=== PATIENT | male | born 1985 | race African-American/Black ===

== ENCOUNTER 2023-02-28 07:08 | Emergency (ER) | payer OTHER ==
[~2023-02-28] VITALS: Ht 180.3 cm; Wt 63.6 kg
[2023-02-28 07:17] VITALS: TEMP 97.7
[2023-02-28 07:59] LABS: BASOPHILS % (AUTO) 0.3 % (0.0-2.0); EOSINOPHILS % (AUTO) 2.2 % (1.0-6.0); HEMATOCRIT 46.6 % (41-53); HEMOGLOBIN 15.9 g/dL (13.5-17.5); LYMPHOCYTES # (AUTO) 0.4 K/uL (1.0-4.8); LYMPHOCYTES % (AUTO) 3.4 % (22.0-44.0); MEAN CORPUSCULAR HEMOGLOBIN 30.1 pg (26.0-34.0); MEAN CORPUSCULAR HGB CONC 34.1 G/dL (31.0-37.0); MEAN CORPUSCULAR VOLUME 88 fL (80-100); MONOCYTES # (AUTO) 0.9 K/uL (0.1-1.0); MONOCYTES % (AUTO) 8.7 % (2.0-9.0); NEUTROPHILS # (AUTO) 8.9 K/uL (1.8-7.7); PLATELET COUNT (AUTO) 254 K/uL (150-450); RED BLOOD CELL COUNT(AUTO) 5.27 MIL/uL (4.50-5.90); RED CELL DISTRIBUTION WIDTH 14.2 % (11.5-14.5); WHITE BLOOD COUNT (AUTO) 10.4 K/uL (4.5-11.0)
[2023-02-28 08:02] LABS: NEUTROPHILS % (AUTO) 85.4 % (40.0-70.0)
[2023-02-28 08:10] LABS: ANION GAP 10 mmol/L (8-16); CALCIUM, TOTAL 8.9 mg/dL (8.8-10.5); CARBON DIOXIDE 27 mmol/L (22-29); CHLORIDE 103 mmol/L (98-107); CREATININE 0.81 mg/dL (0.60-1.30); GLOMERULAR FILTR. RATE CALC > 60 mL/min (>60); GLUCOSE,RANDOM 113 mg/dL (70-110); POTASSIUM 3.8 mmol/L (3.5-5.1); SODIUM SERUM 140 mmol/L (136-145); UREA NITROGEN, BLOOD 18 mg/dL (7-18)
[2023-02-28 08:15] LABS: ALANINE AMINOTRANSFERASE 30 U/L (12-78); ALBUMIN 4.1 g/dL (3.4-5.0); ALKALINE PHOSPHATASE 84 U/L (46-116); ASPARTATE AMINOTRANSFERASE 27 U/L (15-37); BILIRUBIN,TOTAL 0.8 mg/dL (0.1-1.0); LIPASE 25 U/L (16-77); TOTAL PROTEIN, SERUM 8.3 g/dL (6.4-8.2)
[2023-02-28] MEDS ORDERED: ONDANSETRON HCL 4 MG TABLET PO ONE (09:15)
[2023-02-28 10:20] LABS: COVID AG,FIA SOURCE NASAL SWAB
[2023-02-28 10:35] VITALS: BP 116/72; PULSE 83; RESP 16
[2023-02-28 10:38] LABS: INFLUENZA TYPE A NEGATIVE FOR TYPE A (NEGATIVE); INFLUENZA TYPE B NEGATIVE FOR TYPE B (NEGATIVE)
[2023-02-28 10:39] LABS: SARS-COV2 (COVID) ANTIGEN,FIA Negative (Negative)
== END 2023-02-28 10:36 | disposition home or self-care (01) ==
LOC: EMS 07:10
DX: R19.7 Diarrhea, unspecified (principal); R11.2 Nausea with vomiting, unspecified; Z20.822 Contact with and (suspected) exposure to COVID-19
CPT/HCPCS: 99284; 87426; 80053; 83690; 85025; 87804; 93005; Q0162

== ENCOUNTER 2023-08-31 00:25 | Emergency (ER) | payer OTHER ==
[~2023-08-31] VITALS: Ht 180.3 cm; Wt 65.0 kg
[2023-08-31 00:36] VITALS: BP 108/68; PULSE 54; RESP 18; TEMP 98.1
[2023-08-31 01:15] LABS: COVID AG,FIA SOURCE NASAL SWAB
[2023-08-31 01:35] LABS: INFLUENZA TYPE A NEGATIVE FOR TYPE A (NEGATIVE); INFLUENZA TYPE B NEGATIVE FOR TYPE B (NEGATIVE)
[2023-08-31 01:42] LABS: SARS-COV2 (COVID) ANTIGEN,FIA Positive (Negative)
[2023-08-31] MEDS ORDERED: NIRM1TAB10 PO (02:09)
== END 2023-08-31 02:19 | disposition home or self-care (01) ==
LOC: EMS 00:26
DX: U07.1 COVID-19 (principal); F17.210 Nicotine dependence, cigarettes, uncomplicated; F10.90 Alcohol use, unspecified, uncomplicated; F12.90 Cannabis use, unspecified, uncomplicated
CPT/HCPCS: 71045; 87804; 99284